=== PATIENT | male | born 1940 | race Caucasian/White ===

== ENCOUNTER 2017-02-27 11:57 | Emergency (ER) | payer OTHER ==
[~2017-02-27] VITALS: Ht 177.8 cm; Wt 68.0 kg
[2017-02-27 12:05] VITALS: BP 134/79
--- NOTE | 2017-02-27 12:23 | NUR ---
L SHOULDER SLING APPLIED
== END 2017-02-27 12:27 | disposition home or self-care (01) ==
LOC: ER 12:01
DX: M70.22 Olecranon bursitis, left elbow (principal); I10 Essential (primary) hypertension; Z85.46 Personal history of malignant neoplasm of prostate; Y93.89 Activity, other specified
CPT/HCPCS: A4606; Z7610

== ENCOUNTER 2017-03-09 13:54 | Emergency (ER) | payer OTHER ==
[~2017-03-09] VITALS: Ht 175.3 cm; Wt 81.6 kg
[2017-03-09 14:08] VITALS: BP 160/89
--- NOTE | 2017-03-09 14:52 | NUR ---
DR. OSUNA IS AT THE BEDSIDE FOR NEEDLE ASPIRATION OF LT ELBOW.
== END 2017-03-09 15:12 | disposition home or self-care (01) ==
LOC: ER 13:55
DX: M70.22 Olecranon bursitis, left elbow (principal); I10 Essential (primary) hypertension; Z85.46 Personal history of malignant neoplasm of prostate; Y93.89 Activity, other specified
CPT/HCPCS: A4606; Z7610